=== PATIENT | female | born 1950 | race Caucasian/White ===

== ENCOUNTER 2019-02-24 05:15 | Day surgery (SDC) ==
[2019-02-19 11:28] LABS: BASO# 0.03 X1000 (0.0-0.2); BASO% 0.5 % (0.0-0.8); EOS% 6.4 % (0.0-10.0); HEMATOCRIT 42.8 % (37.0-47.0); HEMOGLOBIN 13.8 g/dL (12.0-16.0); LYMPH# 1.94 X1000 (1.2-3.4); LYMPH% 31.1 % (20.5-51.1); MCH 29.6 PG (27-31); MCHC 32.2 g/dL (33-37); MCV 91.8 FL (81-99); MPV 9.4 FL (7.4-10.4); NEUT# 3.37 X1000 (1.4-6.5); PLT 272 X1000 (130-400); RBC 4.66 XMIL (4.2-5.4); RDW 13.5 % (11.5-14.5); WBC 6.24 X1000 (4.8-10.8)
[2019-02-19 11:45] LABS: CALCIUM 9.7 mg/dL (8.8-10.2); CREATININE 1.1 mg/dL (0.5-0.9); POTASSIUM 3.7 mmol/L (3.5-5.1)
--- NOTE | 2019-02-19 12:01 | EKG Report ---
Test Performed on : 02/19/2019 10:56:06 AM Test Reason : PAT Blood Pressure : / mmHG Vent. Rate : 069 BPM Atrial Rate : 069 BPM P-R Int : 162 ms QRS Dur : 082 ms QT Int : 402 ms P-R-T Axes : 045 042 047 degrees QTc Int : 430 ms Normal sinus rhythm. Normal ECG When compared with ECG of 10-JAN-2010 10:23, No significant change was found Confirmed by Jonny RUDD, Roby Liz ([id number]) on 02/20/2019 7:42:51 PM
[2019-02-22 12:12] LABS: HEMATOCRIT 42.9 % (37.0-47.0); MCH 29.9 PG (27-31); MCHC 32.6 g/dL (33-37); MCV 91.7 FL (81-99); MPV 9.5 FL (7.4-10.4); RBC 4.68 XMIL (4.2-5.4); RDW 13.5 % (11.5-14.5); WBC 6.54 X1000 (4.8-10.8)
[2019-02-24] MEDS ORDERED: LR 1,000 ML ONE ×2 (05:41→06:28)
[2019-02-24] MEDS ORDERED: KEFZOL 1 GM/D5W 2 GM/100 ML IVPB ONE (05:41)
[2019-02-24] MEDS ORDERED: PEPCID ONE (05:41)
[2019-02-24] MEDS ORDERED: REGLAN ONE (05:41)
[2019-02-24] MEDS ORDERED: ZOFRAN ONE (06:23)
[2019-02-24] MEDS ORDERED: DIPRIVAN 1% ONE (06:23)
[2019-02-24] MEDS ORDERED: DECADRON ONE (06:23)
[2019-02-24] MEDS ORDERED: ROBINUL ONE ×2 (06:23→06:35)
[2019-02-24] MEDS ORDERED: XYLOCAINE-MPF 2% ONE (06:23)
[2019-02-24] MEDS ORDERED: FENTANYL ONE (06:23)
[2019-02-24] MEDS ORDERED: SENSORCAINE 0.5%-EPI 1:200,000 ONE (06:28)
[2019-02-24] MEDS ORDERED: SODIUM CHLORIDE 0.9% 10 ML ONE ×2 (06:34→07:59)
[2019-02-24] MEDS ORDERED: NORCURON ONE ×2 (06:34→09:04)
[2019-02-24] MEDS ORDERED: QUELICIN (DOSE) ONE (06:34)
[2019-02-24] MEDS ORDERED: EPHEDRINE ONE (07:59)
[2019-02-24] MEDS ORDERED: OFIRMEV 1000 MG/ISOTONIC SOLN 1,000 MG/100 ML BOTTLE ONE (08:13)
[2019-02-24 08:18] LABS: URINE SOURCE CATH
[2019-02-24 08:28] LABS: BILIRUBIN URINE NEGATIVE (NEGATIVE); BLOOD URINE NEGATIVE (NEGATIVE); COLOR STRAW; GLUCOSE URINE NEGATIVE (NEGATIVE); KETONE URINE NEGATIVE (NEGATIVE); LEUKOCYTES URINE NEGATIVE (NEGATIVE); NITRITE URINE NEGATIVE (NEGATIVE); PROTEIN URINE NEGATIVE (NEGATIVE); SP GRAVITY URINE 1.011; TURBIDITY URINE CLEAR (CLEAR); UR EPITHELIAL CELLS <10 /HPF (<10); URINE BACTERIA NEGATIVE /HPF; URINE RBC <10 /HPF (<10); URINE WBC <10 /HPF (<10); UROBILINOGEN URINE NORMAL (NORMAL)
[2019-02-24] MEDS ORDERED: DILAUDID ONE (10:34)
[2019-02-24] MEDS ORDERED: METHYLENE BLUE 0.5% ONE (10:49)
[2019-02-24] MEDS ORDERED: NEOSTIGMINE ONE (11:01)
[2019-02-24] MEDS ORDERED: MORPHINE IV PRN (12:32)
[2019-02-24] MEDS ORDERED: ZOFRAN IV PRN (12:32)
[2019-02-24] MEDS: OFIRMEV 1000 MG/ISOTONIC SOLN 1,000 MG/100 ML BOTTLE IV SCH ×2 (13:40→18:57)
[2019-02-24] MEDS: PROTONIX IV SCH (13:41)
[2019-02-24] MEDS: SODIUM CHLORIDE 0.9% INJ SCH (13:42)
[2019-02-24] MEDS: LR 1,000 ML IV SCH (13:58)
--- NOTE | 2019-02-24 19:55 | OPERATIVE NOTE ---
PROCEDURE DATE: 02/24/2019 PREOPERATIVE DIAGNOSIS: Large paraesophageal hernia. POSTOPERATIVE DIAGNOSES: Large paraesophageal hernia. PROCEDURE PERFORMED: 1. Robot-assisted laparoscopic paraesophageal hernia repair with gastropexy. 2. Toupee fundoplication. 3. Esophagogastroduodenoscopy SPECIMENS: None. ANESTHESIA: General. ESTIMATED BLOOD LOSS: 20 mL. INDICATIONS: A 68-year-old female who has had progressive upper GI dysphagia type symptoms. Her workup revealed that she had a large paraesophageal hernia containing the majority of her stomach and even a portion of her pancreas on her CT scan. She had some ulceration of the stomach associated with this. Manometry was not able to be completed given the size of the hernia. FINDINGS: There is well perfused stomach with the pylorus at the level of the hiatus and a large defect that closed without tension. OPERATIVE NOTE: Risks, benefits and alternatives discussed with the patient and she consented to procedure, seen preoperatively and surgical site was confirmed. Taken the operating room, placed supine position, general anesthesia induced. Villanueva catheter was placed. Her abdomen is prepped chlorhexidine solution and draped usual fashion. After time-out we made midline incision 13 cm from the xiphoid process. Placed a camera trocar, insufflated the abdomen, confirmed that there was no injury to underlying structures. We then placed a robotic trocar to the patient's right 1 handbreadth and liver retractor incision right lateral to this an marketing assistant 5 mm trocar in the right lower quadrant and 2 additional robotic trocars right lateral each 1 handbreadth apart. Robot was then docked after placing her in Trendelenburg position. We began starting medially incising the hernia sac. We began circumferentially dissecting the esophagus up to a height that provided complete reduction the stomach and at least 6 cm of intraabdominal esophagus. We identified and protected both the anterior and posterior vagus nerves. The esophagus and stomach lied nicely, we did encircle with a [place] to help manipulate the stomach. There were large vessels medially felt to be possibly the right gastric that we protected and were able to mobilize with this stomach. We did not violate the pleura on either side. We identified the crura on both sides and the junction posteriorly. We identified the aorta and vena cava and protected these obviously. A nonabsorbable V-Loc suture 2-0 was used to close the defect without tension ensuring not to encroach upon the esophagus too much. We then did a partial posterior wrap as we were unable to incompletely assess the function of her esophagus on preoperative manometry and secured this with silk sutures on the patient's right side of her esophagus. We then placed a gastropexy suture on both sides both to the crural repair as well as to the left side of the diaphragm. We then placed some silk retention sutures interrupted through the crural repairs well. There was good closure of the defect. Crura were of good quality. The stomach and distal esophagus lied nicely within the abdominal cavity. At this point, we removed all of our needles and [place] drain intact and undocked the robot. An EGD scope was passed under direct visualization. The GE junction was now within the abdomen. The scope passed easily. We noted no superficial ulcerations and methylene blue was injected and we visualized laparoscopically that there was no blue leaking. At this point we completed the operation, removed our trocars, closed the fascia with 0 Vicryl sutures. Skin was closed with 4-0 Monocryl. Dermabond was applied. Please also note we used liver retractor to retract the left lateral segment liver. She was woken, transferred recovery. Counts were correct. I spoke with family. cc: Mary Arthur MD [facility]
[2019-02-25] MEDS: PROTONIX IV SCH (00:23)
[2019-02-25] MEDS: SODIUM CHLORIDE 0.9% INJ SCH (00:23)
[2019-02-25] MEDS: OFIRMEV 1000 MG/ISOTONIC SOLN 1,000 MG/100 ML BOTTLE IV SCH ×3 (00:23→13:26)
[2019-02-25] MEDS: LR 1,000 ML IV SCH ×3 (00:24→13:29)
[2019-02-25] MEDS ORDERED: SYNTHROID PO SCH (09:00)
[2019-02-25] MEDS ORDERED: LEXAPRO PO SCH (09:00)
[2019-02-25 12:26] VITALS: BP 129/67
--- NOTE | 2019-02-25 15:31 | DISCHARGE SUMMARY ---
ADMISSION DATE: 02/24/2019 DISCHARGE DATE: 02/25/2019 PREOPERATIVE DIAGNOSIS: Paraesophageal hernia. POSTOPERATIVE DIAGNOSIS: Paraesophageal hernia. PROCEDURE: Robotic assisted paraesophageal hernia repair with toupee fundoplication, gastropexy, and esophagogastroduodenoscopy. HISTORY OF PRESENT ILLNESS: This is a 68-year-old female who has had chronic dysphagia type symptoms with a large hiatal hernia containing majority of her stomach. She had associated ulceration of her stomach. HOSPITAL COURSE: Patient taken operating room on the date of her surgery which was 02/24/2019. She was cleared by anesthesia. For details please see dictated operative note. Postoperatively she was admitted the floor where she is maintained on clear liquid diet. She had a Villanueva catheter which was removed on postop day 1. Diet was advanced full liquids and she tolerated this well. She was able void. She had no vomiting and her preoperative dysphagia symptoms had resolved. She was continued on PPI and appropriate home medications. She required no pain medication. She was felt safe for discharge. Follow up appointment is with me within the week. DISCHARGE MEDICATIONS: Continue home medications including PPI and Carafate. DISCHARGE INSTRUCTIONS: Were given in written and verbal format. DISCHARGE DIET: Full liquids with low residual diet, small volume diet. DISPOSITION: Home to self-care under the care of her family. cc: Mary Arthur MD
== END 2019-02-25 16:14 | disposition home or self-care (01) ==
LOC: 4N 05:15 → OPS 05:15
PROVIDERS: ATTEND Surgery